=== PATIENT | female | born 1975 | race African-American/Black ===

== ENCOUNTER 2018-08-29 19:25 | Emergency (ER) | payer OTHER, BC ==
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
[2018-08-29] MEDS ORDERED: ACETAMINOPHEN 325 MG TABLET PO ONE (20:57)
[2018-08-29] MEDS ORDERED: IBUPROFEN 600 MG TABLET PO ONE (20:58)
[2018-08-29] MEDS ORDERED: LIDOCAINE 5% (700 MG) TRANSDERMAL ADH..PATCH TP ONE (20:58)
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
[2018-08-29 22:21] VITALS: BP 143/91
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
== END 2018-08-29 22:23 | disposition home or self-care (01) ==
LOC: ER 19:25
DX: M25.511 Pain in right shoulder (principal); M54.6 Pain in thoracic spine; M54.2 Cervicalgia; V87.7XXA Person injured in collision between other specified motor vehicles (traffic), initial encounter
CPT/HCPCS: 72040; 72070; 99284